=== PATIENT | female | born 1985 | race Caucasian/White ===

== ENCOUNTER 2019-08-13 03:25 | Emergency (ER) | payer OTHER ==
[~2019-08-13] VITALS: Ht 154.9 cm; Wt 58.1 kg
[2019-08-13 03:30] VITALS: BP_SYST 127
--- NOTE | 2019-08-13 03:30 | NUR ---
Patient to ER [facility] to gown for evaluation. Side rails up.
--- NOTE | 2019-08-13 03:32 | NUR ---
Patient was BIB [facility] for medical clearance. Pt has no complaints at the moment. No other injuries/complaints per patient or noted.
--- NOTE | 2019-08-13 04:17 | NUR ---
ER Dr. Fletcher at bedside examining patient.
[2019-08-13 05:17] VITALS: BP_SYST 119
--- NOTE | 2019-08-13 05:17 | NUR ---
Patient given written and verbal discharge instructions and verbalizes understanding. ER MD discussed with patient the results and treatment provided. Patient in stable condition. ID arm band removed. No Rx given. Patient educated on pain management and to follow up with PMD. Pain Scale 0. Opportunity for questions provided and answered. Medication side effect fact sheet provided. Accompanied by [facility] in custody.
== END 2019-08-13 05:17 ==
LOC: SED 03:25
DX: F19.90 Other psychoactive substance use, unspecified, uncomplicated (principal)
CPT/HCPCS: 99283